=== PATIENT | female | born 1935 | race Caucasian/White ===

== ENCOUNTER → 2017-03-25 | Outpatient (CLI) | payer MEDICARE, OTHER ==
[~2017-03-25] MED LIST: ASPIRIN (CHILDR81 MG PO; NORVASC5 MG PO; OCUVITE WITH L1 EACH PO; PRILOSEC20 MG PO; TOPROL XL 5050 MG PO; TRAZODONE HCL100 MG PO; ZOCOR80 MG PO; ZOLOFT50 MG PO
--- NOTE | ~2017-03-25 | PUL ---
PATIENT'S NAME: TYREE [facility] AGE: 82 Y [address] ROOM: [place] [address] LOCATION: [facility] ADMIT DATE: 03/25/2017 Pulmonary DISCHARGE DATE: FAMILY PHYSICIAN: Alan Joy MD ATTENDING PHYSICIAN: Alan Joy NAME OF PROCEDURE: Sleep study PROCEDURE DATE: 03/25/2017 TECH: JANETT Camacho TEST #: [facility]# [id number] TECHNICAL PARAMETERS: The patient was studied using International 10/20 measuring system. While the patient was studied, there was continuous monitoring of EEG (8 leads), EOG (2 leads), EKG (3 leads), submental EMG (3 leads), tibial (4 leads), respiratory inductive plethysmography (RIP) for thoracic and abdominal effort, oral and nasal airflow with a thermocouple and pressure transducer, and oximetry. The accessibility lift technician also performed visual and auditory observations noting things like body position, patient's status, breath sounds, artifact, snoring level and patient comments. Continuous sound was monitored using a 2-way speaker system and video monitoring was performed using an infrared camera. Review of the entire study was performed epoch by epoch utilizing a single epoch and multiple epoch capability sleep system. MEDICAL HISTORY: The patient is an 82-year-old overweight female with daytime sleepiness and snoring. SLEEP STAGE SUMMARY: The patient was studied for 508 minutes of which she slept 162 minutes. She fell asleep in 20 minutes and slept for 91% of the night. Sleep architecture revealed a decline in slow wave and a mild decline in REM sleep. RESPIRATORY SUMMARY: This study was done to titrate CPAP which was started at 6 cm and titrated ultimately to 17 cm. Best level of control occurred with CPAP at 16 cm. EKG SUMMARY: Average heart rate during sleep was 53 beats per minute. LIMB MOVEMENT SUMMARY: No clinically relevant periodic limb movements were noted. SUMMARY: Obstructive sleep apnea. PATIENT'S NAME: TYREE [facility] AGE: 82 Y [address] ROOM: [place] [address] LOCATION: [facility] ADMIT DATE: 03/25/2017 Pulmonary DISCHARGE DATE: FAMILY PHYSICIAN: Alan Joy MD ATTENDING PHYSICIAN: Alan Joy PLAN: Would consider auto CPAP with settings of 8-20. Patient will receive results from the ordering provider. MD ABDULLAHI MANCIA /[id number] dtt: 04/07/17 0806 , Abraham Chavez dtd: 04/01/17 0826
== END | disposition disaster alternative care site (69) ==
LOC: GSLP 20:03
DX: G47.33 Obstructive sleep apnea (adult) (pediatric) (principal); R09.02 Hypoxemia; Z79.899 Other long term (current) drug therapy; Z88.5 Allergy status to narcotic agent; Z88.8 Allergy status to other drugs, medicaments and biological substances